=== PATIENT | male | born 1995 | race Caucasian/White ===

== ENCOUNTER 2023-12-20 20:27 | Emergency (ER) | payer OTHER, SELFPAY ==
--- NOTE | ~2023-12-20 | XR_ITS ---
XR chest 2V Ordering provider: Francisco Carlos MD History: 28 years Male with . chest pain . Comparison: May 30, 2020 FINDINGS: MEDIASTINUM: The cardiac silhouette is not enlarged. LUNGS: No infiltrates, effusions or pneumothorax. OTHER: No free air under the diaphragm. IMPRESSION: No acute cardiopulmonary pathology. Reviewed, dictated and finalized at location A.
[2023-12-20 20:31] VITALS: BP 134/84; PULSE 73; RESP 18; TEMP 36.5; O2SAT 96
--- NOTE | 2023-12-20 20:35 | ECG_ITS ---
Test Date: 2023-12-20 20:31:11 Measurements Intervals [place] Rate: 73 P: 31 MO: 178 QRS: 7 QRSD: 101 T: 46 QT: 367 QTc: 405 Interpretive Statements SINUS RHYTHM INCOMPLETE RIGHT BUNDLE BRANCH BLOCK DELAYED PRECORDIAL R/S TRANSITION LOW QRS VOLTAGE IN PRECORDIAL LEADS CONSIDER INFERIOR INFARCT, AGE INDETERMINATE ABNORMAL ECG No previous ECG available for comparison Electronically Signed On 12-20-2023 21:19:38 CDT by Pawan Burnette D.O.
[2023-12-20 20:48] LABS: Basophils Absolute Auto 0.1 K/mm3 (0.0-0.1); Basophils Percent Auto 0.5 % (0.2-1.2); Eosinophils Absolute Auto 0.1 K/mm3 (0-0.3); Eosinophils Percent Auto 1.2 % (0-4.4); Hematocrit 42.1 % (42.0-52.0); Hemoglobin 14.5 g/dL (14.0-18.0); Immature Granulocyte Absolute 0.04 K/mm3 (0.00-0.031); Immature Granulocyte Percent A 0.4 % (0-0.5); Lymphocytes Percent Auto 28.1 % (18.3-44.2); Mean Corpuscular HGB Conc 34.4 g/dl (32-36); Mean Corpuscular Volume 92.9 fl (80-100); Mean Platelet Volume 10.8 fl (7.4-10.4); Monocytes Absolute Auto 0.6 K/mm3 (0.1-0.6); Monocytes Percent Auto 6.6 % (2.6-8.5); Neutrophils Absolute Auto 5.8 K/mm3 (1.3-6.7); Neutrophils Percent Auto 63.2 % (45.5-73.1); Platelet Count Result 279 k/mm3 (150-375); Red Blood Count 4.53 M/mm3 (4.6-6.20); Red Cell Distribution Width 12.5 % (11.5-14.5); White Blood Count 9.3 K/mm3 (4.5-10.0)
[2023-12-20 20:58] LABS: Alanine Aminotransferase 40 U/L (6-50); Albumin Level 4.6 g/dL (3.5-5.1); Alkaline Phosphatase 99 U/L (38-126); Anion Gap 11 mmol/L (4-12); Aspartate Amino Transferase 34 U/L (17-59); Bilirubin,Total 0.7 mg/dL (0.2-1.3); Blood Urea Nitrogen 17 mg/dL (9-20); Calcium 9.1 mg/dL (8.4-10.2); Carbon Dioxide 26 mmol/L (22-30); Chloride 102 mmol/L (98-107); Estimated CRCL calculation 152 ml/min; Estimated Glomerular Filt Rate > 60; Glucose 112 mg/dL (65-110); Lipase 125 U/L (23-300); Potassium 3.7 mmol/L (3.4-5.0); Sodium 139 mmol/L (137-145)
[2023-12-20 21:02] LABS: Prothrombin Time 13.6 Seconds (11.1-14.7)
[2023-12-20 21:03] LABS: Partial Thromboplastin Time 32.6 Seconds (22.3-36.8)
[2023-12-20 21:10] LABS: Troponin I < 0.012 ng/mL (0.000-0.034)
--- NOTE | 2023-12-20 21:15 | ED.CHESTPAIN ---
HPI - Chest Pain General Chief Complaint: Chest Pain Stated Complaint: chest pain Time Seen by Provider: 12/20/23 20:57 History of Present Illness HPI narrative: This is a 28-year-old male with no pertinent past medical history who presents to the emergency department for evaluation of some chest discomfort. Patient states he was working at the [employer] when he was trying to wire something up electrical system and noticed that he felt a shock-like sensation after touching a wire. It was a household 220. Prior according to himself and he did not have any prolonged exposure and was able to retract his finger immediately. He states he felt a shock sensation going from his left index finger tip down to his left great toe. He states he has been having some chest discomfort that started shortly after that and describes as a cold sensation in the left side of his chest. He has not tried any analgesics medications at home. Denies any shortness of breath, nausea, vomiting, headache, vision changes, weakness, fatigue, neuropathy or any neurological complaints. He was otherwise in his normal state of health and has no chronic medical conditions and does not take any medications regularly. Did not have any syncopal event and his symptoms are slowly improving since the incident happened several hours ago according to himself. Related Data Allergies Allergy/AdvReac Type Severity Reaction Status Date / Time azithromycin [From Zithromax] Allergy Hives Verified 12/20/23 20:55 Review of Systems Review of Systems: As reviewed above in HPI Exam Narrative: GENERAL: [Well-appearing, well-nourished, and in no acute distress.] HEAD: [Normocephalic, atraumatic.] EYES: [PERRLA and EOMI.] ENT: Nares clear, no rhinorrhea or epistaxis. Mucous membranes moist. NECK: Supple. CHEST: [Clear to auscultation. No respiratory distress.] HEART: [Regular rate and rhythm]. No murmur heard. [Normal peripheral pulses.] ABDOMEN: [Soft, nondistended], [nontender], [No rigidity or guarding] EXTREMITIES: Normal range of motion. [No edema.] SKIN: Warm, dry, no rash. No blisters or scarring, jarring or any kind of entry or exit wound for the electrical course that was described for the patient. Left index finger without injury, left foot without any injury or any erythema, blistering, burning. NEURO: [No focal deficits]. Alert and oriented [x3.] PSYCH: [Normal mood and affect.] Course Vital Signs Vital signs: Vital Signs Temperature 36.5 C 12/20/23 20:31 Pulse Rate 73 12/20/23 20:31 Respiratory Rate 18 12/20/23 20:31 Blood Pressure 134/84 12/20/23 20:31 Pulse Oximetry 96 12/20/23 20:31 Oxygen Delivery Room Air 12/20/23 20:31 Temperature 36.5 C 12/20/23 20:31 Pulse Rate 71 12/20/23 21:59 Respiratory Rate 15 12/20/23 21:59 Blood Pressure 124/72 12/20/23 21:59 Pulse Oximetry 100 12/20/23 21:59 Oxygen Delivery Room Air 12/20/23 20:31 MDM - Chest Pain MDM Narrative Medical decision making narrative: This is a 28-year-old male who was exposed to mild electrical shock with a 220 voltage live wire. There was no prolonged contact and patient was able to remove his hand immediately upon contact. He is complaining of some hope this sensation left side of his chest and was concerned that he sustained a significant injury with the electrical sensation. He has a very reassuring examination with normal reassuring vital signs and an unremarkable skin examination and cardiovascular assessment. No blistering or burning or any kind of wounds were identified in the area that he felt the sensation or contacted the wire. The wire is very low voltage and does not have any significant potential for injury. A cardiac workup was ordered including EKG, chest x-ray, troponin he was given analgesia with oral medications. His laboratory studies were very reassuring with a negative troponin and normal EKG without any arrhythmia or
[2023-12-20] MEDS: IBUPROFEN 600 MG TABLET PO (21:19)
[2023-12-20] MEDS: ACETAMINOPHEN 500 MG TABLET 1000 MG PO (21:19)
[2023-12-20 21:59] VITALS: BP 124/72; PULSE 71; RESP 15; O2SAT 100
== END 2023-12-20 22:00 | disposition home or self-care (01) ==
PROVIDERS: Emergency Provider Student in an Organized Health Care Education/Training Program
DX: R07.89 Other chest pain (principal); W86.1XXA Exposure to industrial wiring, appliances and electrical machinery, initial encounter
CPT/HCPCS: 36415; 71046; 80053; 83690; 84484; 85025; 85610; 85730; 93005; 99284; A9270